=== PATIENT | female | born 1955 | race Caucasian/White ===

== ENCOUNTER → 2019-11-13 | Outpatient (CLI) | payer OTHER | LOC: CAT 12:01 | DX: Z13.6 Encounter for screening for cardiovascular disorders (principal); I25.10 Atherosclerotic heart disease of native coronary artery without angina pectoris; E78.00 Pure hypercholesterolemia, unspecified ==

== ENCOUNTER → 2019-11-13 | Outpatient (CLI) | payer OTHER | LOC: SJCVC 12:17 | DX: I25.10 Atherosclerotic heart disease of native coronary artery without angina pectoris (principal); E78.00 Pure hypercholesterolemia, unspecified; I10 Essential (primary) hypertension; E11.9 Type 2 diabetes mellitus without complications; E78.5 Hyperlipidemia, unspecified; Z79.899 Other long term (current) drug therapy; Z79.84 Long term (current) use of oral hypoglycemic drugs; Z82.49 Family history of ischemic heart disease and other diseases of the circulatory system ==

== ENCOUNTER → 2020-02-06 | Outpatient (CLI) | payer OTHER | LOC: SJCVCIMAG 12-11 11:32 → SJCVC 10:30 → SJCVCIMAG 10:30 | DX: I25.10 Atherosclerotic heart disease of native coronary artery without angina pectoris (principal); R93.1 Abnormal findings on diagnostic imaging of heart and coronary circulation; I10 Essential (primary) hypertension; E11.9 Type 2 diabetes mellitus without complications ==